=== PATIENT | male | born 1950 | race Caucasian/White ===

== ENCOUNTER 2025-08-16 13:21 | Inpatient (IN) | payer OTHER ==
[~2025-08-16] VITALS: Ht 167.6 cm; Wt 111.1 kg
[2025-08-16] MEDS ORDERED: FLEC50HA PO (13:43)
[2025-08-16] MEDS ORDERED: TAMS-18 PO (13:43)
[2025-08-16] MEDS ORDERED: MELO15TA28 PO (13:43)
[2025-08-16] MEDS ORDERED: XARE20TA PO (13:43)
[2025-08-16] MEDS ORDERED: LOSA50TA5 PO (13:49)
[2025-08-16] MEDS ORDERED: METO25TA4 PO (13:49)
[2025-08-16] MEDS ORDERED: LEVOTAB10 PO (13:54)
[2025-08-16 14:19] LABS: VENOUS BASE EXCESS 1.3 (-2.0-2.0); VENOUS HCO3 26.6 MMOL/L (23.0-27.0); VENOUS O2 SATURATION 55.2 % (60.0-80.0); VENOUS PARTIAL PRESSURE CO2 44.9 mmHg (38.0-50.0); VENOUS PARTIAL PRESSURE O2 28.0 mmHg (30.0-50.0); VENOUS PH 7.391 UNITS (7.330-7.430); VENOUS STANDARD HCO3 24.7 MMOL/L; VENOUS TOTAL CO2 28.0 MMOL/L (24.0-28.0)
[2025-08-16 14:23] LABS: BASO # 0.0 10^3/uL (0.0-0.2); BASO % 0.3 % (0.0-1.0); EOS # 0.1 10^3/uL (0.0-0.5); EOS % 0.6 % (0.0-3.0); LYMPH # 0.8 10^3/uL (1.5-5.0); LYMPH % 7.1 % (24.0-44.0); MONO # 1.0 10^3/uL (0.0-0.8); MONO % 8.6 % (2.0-8.0); NEUTROPHILS # 9.8 10^3/uL (1.5-8.5); NEUTROPHILS % 83.1 % (36.0-66.0); PLATELET COUNT, AUTOMATED 207 10^3/uL (150-450)
[2025-08-16 14:51] LABS: ALT/SGPT 24.0 U/L (7.0-40); AST/SGOT 23.0 U/L (<34); C REACTIVE PROTEIN QUANTITATIV 6.56 MG/DL (<1.0); CALCIUM LEVEL 9.2 MG/DL (8.3-10.6); CARBON DIOXIDE LEVEL 27.0 MMOL/L (20-31); CHLORIDE LEVEL 107.0 MMOL/L (98-107); CREATININE FOR GFR 1.17 MG/DL (0.70-1.30); GLOMERULAR FILTRATION RATE 65.0 (>42); POTASSIUM SERUM 4.4 MMOL/L (3.5-5.1); SODIUM LEVEL 140.0 MMOL/L (136-145)
[2025-08-16] MEDS: cefTRIAXone SOD 2 GM in DEXTROSE 5% (D5W) ADV/MINI-BAG 50 ML IV ONE (14:56)
[2025-08-16] MEDS: ACETAMINOPHEN 500 MG TAB PO ONE (15:26)
[2025-08-16 15:41] LABS: APPEARANCE, URINE CLEAR (CLEAR); BACTERIA, URINE AUTO 3+ (NEGATIVE); BILIRUBIN, URINE AUTO NEGATIVE (NEGATIVE); BLOOD, URINE BLOOD 3+ (NEGATIVE); GLUCOSE, URINE (UA) AUTO NEGATIVE (NEGATIVE); KETONE, URINE AUTO NEGATIVE (NEGATIVE); LEUKOCYTE ESTERASE, URINE AUTO TRACE (NEGATIVE); MUCUS, URINE SMALL (NEGATIVE); NITRITE, URINE AUTO NEGATIVE (NEGATIVE); PROTEIN, URINE AUTO NEGATIVE (NEGATIVE); RBC, URINE AUTO 67 /HPF (0-3); SPECIFIC GRAVITY URINE AUTO 1.017 (1.002-1.035); SQUAMOUS EPITHELIAL CELL UR AU 0 /HPF (0-6); UROBILINOGEN, URINE AUTO 0.2 mg/dL (0.0-2.0); WBC, URINE AUTO 13 /HPF (0-3)
[2025-08-16] MEDS ORDERED: CEFD300C PO (16:55)
[2025-08-16] MEDS: [UNRECOGNIZED DRUG - OTHER] IV ONE (17:53)
[2025-08-16] MEDS: NS 0.9% IV ONE (17:53)
[2025-08-16] MEDS ORDERED: METO50TA7 PO (18:47)
[2025-08-16] MEDS ORDERED: MELO7.5T35 PO (18:48)
[2025-08-16] MEDS ORDERED: TRAM50TA2 PO (18:48)
[2025-08-16] MEDS ORDERED: HOME MED LIST COMPLETE! XX SCH (18:50)
[2025-08-16] MEDS ORDERED: traMADol 50 MG TAB PO PRN (19:05)
[2025-08-16] MEDS: FLECAINIDE 50 MG TABLET PO SCH (20:07)
[2025-08-16] MEDS: RIVAROXABAN 20MG TAB PO SCH (20:07)
[2025-08-16 20:36] LABS: INR 1.83
[2025-08-16 21:15] VITALS: BP 123/59; TEMP 97.6; O2SAT 95
[2025-08-16] MEDS: NS (Normal Saline) 0.9% 1,000 ML IV SCH (21:33)
[2025-08-17] VITALS (10 sets, daily range): BP systolic 123–137; BP diastolic 60–65; TEMP 97.5–101.5; O2SAT 93–96
[2025-08-17] MEDS: ACETAMINOPHEN 325 MG TAB PO PRN (03:40)
[2025-08-17 05:44] LABS: PLATELET COUNT, AUTOMATED 180 10^3/uL (150-450)
[2025-08-17 06:11] LABS: ALT/SGPT 18.0 U/L (7.0-40); AST/SGOT 19.0 U/L (<34); CALCIUM LEVEL 7.9 MG/DL (8.3-10.6); CARBON DIOXIDE LEVEL 23.0 MMOL/L (20-31); CHLORIDE LEVEL 109.0 MMOL/L (98-107); CREATININE FOR GFR 1.06 MG/DL (0.70-1.30); GLOMERULAR FILTRATION RATE 73.2 (>42); POTASSIUM SERUM 3.7 MMOL/L (3.5-5.1); SODIUM LEVEL 141.0 MMOL/L (136-145)
[2025-08-17] MEDS: CEFEPIME HCL 1 GM in DEXTROSE 5% (D5W) ADV/MINI-BAG 50 ML IV SCH (08:55)
[2025-08-17] MEDS ORDERED: ENOXAPARIN 40 MG/0.4 ML SYRINGE (J1650 PER 10MG) SC SCH (09:00)
[2025-08-17] MEDS ORDERED: cefTRIAXone SOD 2 GM in DEXTROSE 5% (D5W) ADV/MINI-BAG 50 ML IV SCH (15:00)
[2025-08-17] MEDS: TAMSULOSIN 0.4 MG CAP PO SCH (20:27)
[2025-08-18 00:01] VITALS: BP 133/62; TEMP 99.3; O2SAT 95
[2025-08-18 04:00] VITALS: BP 121/58; TEMP 99.5; O2SAT 95
[2025-08-18 05:47] LABS: PLATELET COUNT, AUTOMATED 180 10^3/uL (150-450)
[2025-08-18 06:19] LABS: ALT/SGPT 17.0 U/L (7.0-40); AST/SGOT 24.0 U/L (<34); CALCIUM LEVEL 8.2 MG/DL (8.3-10.6); CARBON DIOXIDE LEVEL 21.0 MMOL/L (20-31); CHLORIDE LEVEL 108.0 MMOL/L (98-107); CREATININE FOR GFR 0.97 MG/DL (0.70-1.30); GLOMERULAR FILTRATION RATE 81.4 (>42); POTASSIUM SERUM 3.6 MMOL/L (3.5-5.1); SODIUM LEVEL 139.0 MMOL/L (136-145)
[2025-08-18 07:39] VITALS: BP 136/64; TEMP 98.5; O2SAT 95
[2025-08-18 11:42] VITALS: BP 120/61; TEMP 98.3; O2SAT 94
[2025-08-18 15:47] VITALS: BP 131/62; TEMP 98.4; O2SAT 94
[2025-08-18] MEDS ORDERED: BACT800T5 PO (16:09)
[2025-08-18] MEDS ORDERED: ACET32TAB PO (16:09)
== END 2025-08-18 18:09 | disposition home or self-care (01) | DRG 872 ==
LOC: M ED 13:21 → EDBD 13:21 → M ED INP 18:41 → M PCU 21:50
PROVIDERS: ADMIT Internal Medicine; ATTEND Internal Medicine
DX: A41.9 Sepsis, unspecified organism (principal); N39.0 Urinary tract infection, site not specified; B96.20 Unspecified Escherichia coli [E. coli] as the cause of diseases classified elsewhere; I48.91 Unspecified atrial fibrillation; M79.7 Fibromyalgia; I95.1 Orthostatic hypotension; M19.90 Unspecified osteoarthritis, unspecified site; I73.9 Peripheral vascular disease, unspecified; G47.33 Obstructive sleep apnea (adult) (pediatric); N40.0 Benign prostatic hyperplasia without lower urinary tract symptoms; I10 Essential (primary) hypertension; R91.1 Solitary pulmonary nodule; Z79.51 Long term (current) use of inhaled steroids; Z79.899 Other long term (current) drug therapy; Z91.013 Allergy to seafood; Z92.3 Personal history of irradiation